=== PATIENT | male | born 1990 | race African-American/Black ===

== ENCOUNTER 2021-01-29 08:36 | Emergency (ER) | payer SELFPAY ==
[2021-01-29 08:42] VITALS: BP 182/112; PULSE 92; RESP 20; TEMP 36.3; O2SAT 96
--- NOTE | 2021-01-29 08:49 | ECG_ITS ---
Measurements Intervals [place] Rate: 83 P: 35 MO: 165 QRS: 35 QRSD: 108 T: -29 QT: 399 QTc: 470 Interpretive Statements SINUS RHYTHM NONSPECIFIC ST & T-WAVE ABNORMALITY- INFERIOR LEADS BORDERLINE ECG Electronically Signed On 01-29-2021 9:07:31 CDT by Amilcar Jane D.O.
--- NOTE | 2021-01-29 09:06 | ED.CHESTPAIN ---
HPI - Chest Pain General Chief Complaint: Chest Pain Stated Complaint: tight chest and numb fingertips Time Seen by Provider: 01/29/21 08:58 Source: patient and RN notes reviewed Mode of arrival: ambulatory Limitations: no limitations History of Present Illness HPI narrative: 31-year-old male who presents to [facility] with complaints of chest tightness which started yesterday but has increased in intensity today while at work. Patient states that his fingers of bilateral hands feels numb and tingling. He reports that his pain is substernal rates his pain at 8/10and states some radiation of pain to his left arm. Patient has acutely elevated blood pressure with no known history of hypertension.He denies any nausea skin is warm and dry with no labored respirations. MD complaint: other (Chest tightness) Pertinent past history: other (no prior history ) Onset (ago): day(s) (2) Prior episodes: No Related Data Home Medications Medication Instructions Recorded Confirmed No Home Medications 01/29/21 01/29/21 Allergies Allergy/AdvReac Type Severity Reaction Status Date / Time No Known Allergies Allergy Verified 01/29/21 09:06 Review of Systems Review of Systems: CONSTITUTIONAL: Denies fever, chills, or sweats. EYES: Denies visual changes, redness, or discharge. ENT: Denies rhinorrhea, congestion, sore throat, or otalgia. CARDIOVASCULAR: Positive for substernal chest pain and pressure, denies any palpitations or edema. RESPIRATORY: Denies cough or dyspnea. GASTROINTESTINAL: Denies abdominal pain, nausea, vomiting, or diarrhea. GENITOURINARY: Denies dysuria or hematuria. SKIN: Denies rash or itching. MUSCULOSKELETAL: Denies back pain,no joint pain, or myalgia. NEUROLOGIC: Denies headache,positive numbness and tingling to bilateral hands, no feelings of weakness. PSYCHIATRIC: Denies anxiety or depression. All systems reviewed & are unremarkable except as noted in HPI and below PMFSH Past Medical History Medical History (Updated 02/01/21 @ 20:15 by Cassy Meier NP) No active medical problems Surgical History Surgical History (Updated 02/01/21 @ 20:15 by Cassy Meier NP) No history of previous surgery Family History Family History (Updated 02/01/21 @ 20:14 by Cassy Meier NP) Other Hypertension Social History Social History (Updated 02/01/21 @ 20:14 by Cassy Meier NP) Smoking packs per day: 1 Smoking cigarettes per day: 20.0 Smoking status: Current every day smoker Tobacco type: cigarettes Alcohol intake: current Alcohol use details: social Substance use type: does not use Living arrangements: with family Gender identity (if verbalized by the patient): Male Comments At time of signature agree with nursing documentation of past medical, surgical, social and family history. There is pertinent family history of hypertension which is relevant to presenting complaint Exam Narrative: GENERAL: Well-appearing, well-nourished, obese and in acute distress. HEAD: Normocephalic, atraumatic. EYES: PERRLA and EOMI. ENT: Nares clear, no rhinorrhea or epistaxis. Mucous membranes moist.T<'s normal, throat pink with no lesions or exudates or tonsil swelling NECK: Supple.no lymphadenopathy CHEST: Clear to auscultation. No respiratory distress.even and nonlabored respirations, SAO2 96% on room air. HEART: Regular rate and rhythm. No murmur heard. Normal peripheral pulses.substernal chest tightness rates at 8/10 with radiation of pain to left arm ABDOMEN: Soft, nontender, nondistended, normal active bowel sounds. EXTREMITIES: full ROM of all extremities with no edema, voices tingling to bilateral hands. SK
== END 2021-01-29 09:31 | disposition short-term general hospital (02) ==
LOC: EXPBETH 08:39
PROVIDERS: Emergency Provider Registered Nurse
DX: R07.9 Chest pain, unspecified (principal); F17.210 Nicotine dependence, cigarettes, uncomplicated
CPT/HCPCS: 93005; 99213; A9270; G0463